=== PATIENT | male | born 1960 | race Caucasian/White ===

== ENCOUNTER 2017-02-05 10:21 | Observation (INO) | payer OTHER ==
[2017-02-05] MEDS ORDERED: Aspirin Low Dose CHEW TAB* 81 MG PO ONE (10:40)
[2017-02-05] MEDS ORDERED: Nitroglycerin 2% OINT* 1 GM PAK TOPICAL ONE (10:50)
[2017-02-05 11:16] LABS: Hematocrit 41 % (42-52); Mean Corpuscular HGB Conc 34 g/dl (31-36); Mean Corpuscular Hemoglobin 29 pg (27-31); Mean Corpuscular Volume 85 fL (80-94); Mean Platelet Volume 7 um3 (7.4-10.4); Red Blood Count 4.82 10^6/ul (4.0-5.4); Red Cell Distribution Width 14 % (10.5-15); White Blood Count 6.7 10^3/ul (3.5-10.8)
--- NOTE | 2017-02-05 11:33 | RAD ---
HISTORY: Chest pain COMPARISONS: February 14, 2016 VIEWS: 4: Frontal dual-energy and lateral views of the chest. FINDINGS: CARDIOMEDIASTINAL SILHOUETTE: The cardiomediastinal silhouette is normal. BRODIE: The brodie are normal. PLEURA: The costophrenic angles are sharp. No pleural abnormalities are noted. LUNG PARENCHYMA: The lungs are clear. ABDOMEN: The upper abdomen is clear. There is no subphrenic gas. BONES AND SOFT TISSUES: No bone or soft tissue abnormalities are noted. OTHER: None. IMPRESSION: NO ACTIVE CARDIOPULMONARY DISEASE.
[2017-02-05 11:36] LABS: Albumin 4.4 g/dL (3.2-5.2); BUN/Creatinine Ratio 14.7 (8-20); Calcium 9.5 mg/dL (8.6-10.3); EGFR African American 104.7 (>60); EGFR Non-African American 81.4 (>60); Globulin 2.7 g/dL (2-4); Magnesium 1.9 mg/dL (1.9-2.7); Potassium 4.4 mmol/L (3.5-5.0); Total Bilirubin 0.9 mg/dL (0.2-1.0); Total Protein 7.1 g/dL (6.4-8.9)
[2017-02-05 12:07] LABS: TSH (Thyroid Stimulating Horm) 0.92 mcIU/mL (0.34-5.60)
[2017-02-05] MEDS ORDERED: oxyCODONE TAB* 5 MG TAB PO ONE (12:18)
[2017-02-05] MEDS ORDERED: Acetaminophen TAB* 325 MG PO PRN (14:39)
[2017-02-05] MEDS ORDERED: Omeprazole CAP* 20 MG PO PRN (14:40)
[2017-02-05] MEDS ORDERED: Cyclobenzaprine TAB* 10 MG PO PRN (14:40)
[2017-02-05] MEDS ORDERED: oxyCODONE TAB* 5 MG TAB PO PRN (14:42)
[2017-02-05] MEDS: Aspirin EC Low Dose* 81 MG TAB.EC PO SCH (15:57)
[2017-02-05] MEDS: Morphine TAB Extended Release (*) 30 MG TAB.ER PO SCH (15:57)
--- NOTE | 2017-02-05 17:45 | HP ---
CC: Dr. Whti Kowalksi; Dr. Joshi; Dr. Whittaker * HISTORY AND PHYSICAL: DATE OF ADMISSION: 02/05/17 PRIMARY CARE PROVIDER: Dr. Whit Kowalski. CHIEF COMPLAINT: Chest pain. HISTORY OF PRESENT ILLNESS: Rajendra Martinez is a 56-year-old male with history of chronic pain, on morphine on a daily basis, as well as history of non-ST elevation MS in 2014 with 2 stents into the circumflex artery, who presents complaining of chest pain. The patient stated that he had been having cessations in his breath for some time now. He describes the experience like as a "deep pressure within." Sometimes, he states that belching relieves the pressure. He does not experience the chest pain with exercise or any activity. It usually happens when he is stationary. Today, he stated that he was having breakfast and he had a stressful discussion during breakfast and eating. He developed the chest pressure that was radiating into the left arm. He also stated that he had an episode of diaphoresis. The patient also noted that he has frequently diaphoresis during the day and it is also not related to exercise. He denies any dyspnea. The left-sided chest pressure, the patient experiences on a twice a week basis or so. Once again, it is not related to exercise. Similar chest pressure he experienced in January of 2016, when a stress test was at that point performed, he was admitted to telemetry monitored bed. His workup was basically negative. Today, the patient's EKG is unremarkable and his troponin is 0. The patient is going to be placed on overnight observation with plan for stress test in the morning. PAST MEDICAL HISTORY: 1. Non-ST elevation MS in 2014, status post 2 stents into the circumflex. 2. Hypertension. 3. History of chronic back pain. 4. Gastroesophageal reflux disease. 5. Hyperlipidemia. 6. Diet-controlled diabetes. MEDICATIONS: At home, include: 1. Lipitor 80 mg at bedtime. 2. Lisinopril 10 mg daily. 3. Flexeril 10 mg t.i.d. p.r.n. 4. Aspirin 81 mg daily. 5. Metoprolol succinate 25 mg daily. 6. Omeprazole 20 mg daily. 7. Nitroglycerin on a p.r.n. basis. 8. Morphine 15 mg every 8 hours p.r.n. 9. Morphine sulfate ER 30 mg at bedtime and 60 mg b.i.d. 10. Brilinta 90 mg b.i.d. ALLERGIES: Include BACLOFEN, GABAPENTIN, and METHYLPREDNISOLONE. BACLOFEN causes increased heart rate and chest pain. GABAPENTIN causes anxiety, depression, and mood changes. SOLU-MEDROL causes "swelling." FAMILY HISTORY: The patient has an extensive history of heart disease and his father had heart disease in his 60s. SOCIAL HISTORY: The patient quit smoking when he had his heart attack in 2014. He lives with his fiancee, Tabatha, who would be his healthcare proxy. He denies any alcohol use. He ambulates without the need of support. REVIEW OF SYSTEMS: Please see history of present illness. In addition to the above mentioned, the patient stated that he took a dose of nitroglycerin today with the chest pressure and that resolved the discomfort. All the remaining 14 systems were reviewed with the patient and were otherwise negative. PHYSICAL EXAMINATION GENERAL: The patient is a very pleasant 56-year-old male, who is in no acute distress. Alert, awake, and oriented x3. VITAL SIGNS: Blood pressure of 114/66, heart rate of 70 and regular, respiratory rate 18, oxygen saturation 90% on 2 L oxygen nasal cannula, temperature of 97.8. HEENT: Head, atraumatic and normocephalic. Eyes, pupils are equal and reactive to light and accommodation. Oropharynx clear. Mucosa moist. NECK: Supple. No JVD. No bruits bilaterally. RESPIRATORY: Clear to auscultation bilaterally. CARDIOVASCULAR: Regular rate and rhythm. No murmur. ABDOMEN: Soft and nontender. Bowel sounds are present in all 4 quadrants. EXTREMITIES: There is no edema. Pulses are +2 bilaterally. No clubbing or cyanosis. NEURO: Speech is clear. Cranial nerves II through XII are grossly intact. Motor strength is 5/5 bilaterally. PSYCHIATRIC: Oriented x3 with no evidence of anxiety or depression. SKIN: On evaluation of the skin, no ecchymotic areas or rashes noted. DIAGNOSTIC STUDIES/LAB DATA: Shows hemoglobin A1c was last obtained in July 2016, it was 6.6. Today, sodium was 134, potassium 4.4, chloride 102, carbon dioxide 25, BUN 14, creatinine 0.95. Liver function tests were remarkable. Troponin of 0. TSH of 0.92. CBC: White blood cell count of 6.7, hemoglobin of 14.0, hematocrit of 41, and platelets of . Portable chest x-ray as read by the radiologist: "No active cardiopulmonary disease." The patient's EKG shows normal sinus rhythm with a heart rate of 76 beats per minute with flattening of T waves in leads III and aVF, and no acute ST changes. ASSESSMENT AND PLAN: 1. Chest pain: Somewhat nonspecific in a patient who admits that he was stressed and it also occurred when he was eating, although it was relieved by nitroglycerin. At this point, the patient is going to be placed on overnight observation with a pharmacologic stress test in the morning. The patient requested pharmacologic stress test due that his lower back pain sometimes is severe and is difficult for the patient to walk. 2. In regards to the patient's dyslipidemia, the patient is going to be continued on Lipitor and fasting lipid profile is going to be obtained in the morning. 3. In regards to the patient's history of heart disease, the patient's aspirin and Brilinta as well as beta nazia is going to be continued. 4. In regards to the patient's chronic pain, morphine is going to be continued with its equivalent as outpatient. 5. For DVT prophylaxis, the patient is going to be ambulatory and is otherwise low risk. 6. Code status. The patient's code status is full. 7. In regards to the patient's diabetes, the patient is going to be continued on diabetic diet. His hemoglobin A1c was 6.6 in July of 2016. TIME SPENT: Approximately 65 minutes was spent on admission of this patient, more than half that time was spent [id number] with the patient during the interview and physical exam. [id number]/[facility] #: [id number] DUC
[2017-02-05] MEDS ORDERED: Atorvastatin* 80 MG TAB PO SCH (21:00)
[2017-02-05] MEDS ORDERED: Morphine TAB Extended Release (*) 30 MG TAB.ER PO SCH (21:00)
[2017-02-05] MEDS: Ticagrelor* 90 MG TAB PO SCH (22:41)
[2017-02-06 05:32] LABS: HDL Cholesterol 36.8 mg/dL
[2017-02-06] MEDS ORDERED: Aminophylline IV* 25 MG/ML 10 ML VIAL ONE (07:57)
[2017-02-06] MEDS ORDERED: Regadenoson* 0.4 MG/5 ML SYRINGE ONE (07:57)
[2017-02-06] MEDS ORDERED: Lisinopril TAB* 10 MG PO SCH (09:00)
[2017-02-06] MEDS ORDERED: Metoprolol Succinate XL TAB* 25 MG PO SCH (09:00)
[2017-02-06] MEDS: Morphine TAB Extended Release (*) 30 MG TAB.ER PO SCH (09:19)
--- NOTE | 2017-02-06 09:21 | RAD ---
Edited for charges. INDICATION: Chest pain. COMPARISON: Comparison is made with a prior study from February 15, 2016. Technique: A single day myocardial perfusion stress study was performed. Initially the resting study was performed. The patient was given an intravenous injection of 11.0 mCi of technetium 99m tetrofosmin and and the heart was imaged in multiple projections. The patient returned later in the day and under the direction of Dr. Joshi, the patient was given intervenous injection of Lexiscan. Subsequently the patient was given intravenous injection of 25.6 mCi of technetium 99m tetrofosmin and the heart was imaged in multiple projections. Images were reconstructed in the axial, sagittal and coronal planes and in a 3- D format. FINDINGS: There appears to be normal wall motion and myocardial thickening. The left ventricular ejection fraction was calculated to be 73%. Review of the images demonstrates normal distribution of radiopharmacutical. IMPRESSION: NO EVIDENCE FOR INFARCT OR ISCHEMIA. ASSESSMENT: Low risk. Based on imaging criteria from ACC/AHA 2002 Guideline Update for the Management of Patients With Chronic Stable Angina Table 23. Noninvasive Risk Stratification. MTDD
[2017-02-06] MEDS: Aspirin EC Low Dose* 81 MG TAB.EC PO SCH (11:14)
[2017-02-06] MEDS: Ticagrelor* 90 MG TAB PO SCH (11:14)
[2017-02-06 11:31] VITALS: BP 131/72
--- NOTE | 2017-02-08 12:26 | ED ---
Georgia Garcia Thomas, scribed for Tony De Dios MD on 02/05/17 at 1137 . HPI Chest Pain - HPI Summary HPI Summary: The patient is a 56 y/o M c/o a 30-minute episode of CP that began two hours ago. The CP radiates down his left arm. The CP is worsened with exertion. He is diaphoretic. The CP resolved when he was given NTG. For the last two weeks, he has been feeling weak and fatigued. He has a Hx of two coronary stents and he is a patient of Dr. Joshi. - History of Current Complaint Chief Complaint: EDChestPainROMI Time Seen by Provider: 02/05/17 10:43 Hx Obtained From: Patient Onset/Duration: Started Hours Ago - onset two hours ago, Still Present Timing: Lasting Minutes - CP lasted 30 minutes Pain Intensity: 2 Pain Scale Used: 0-10 Numeric Chest Pain Radiates: Yes Chest Pain Radiates To:: Arm - left arm Aggravating Factor(s): Exertion Alleviating Factor(s): NTG 123 Associated Signs and Symptoms: Positive: Chest Pain, Other: - Weak and fatigue over last three weeks - Additional Pertinent History Primary Care Physician: [id number] - Allergy/Home Medications Allergies/Adverse Reactions: Allergies Allergy/AdvReac Type Severity Reaction Status Date / Time Baclofen Allergy Severe pale, Verified 12/28/16 09:22 affected heart, chest pain Gabapentin AdvReac Intermediate Anxious; Verified 12/28/16 09:22 Depressed; Mood Changes Methylprednisolone AdvReac Swelling Verified 12/28/16 09:22 [From Medrol] PMH/Surg Hx/FS Hx/Imm Hx Previously Healthy: No Endocrine/Hematology History: Reports: Hx Diabetes - controlled with diet Denies: Hx Anemia, Hx Unexplained Bleeding Cardiovascular History: Reports: Hx Angina, Hx Coronary Artery Disease - hx of stents x 2 to circ, Hx Hypercholesterolemia, Hx Hypertension - New dx recently , Hx Myocardial Infarction Denies: Hx Aneurysm, Hx Angioplasty, Hx Auto Implanted Cardiovert Defib, Hx Cardiac Arrest, Hx Cardiomegaly, Hx Congenital Heart Disease, Hx Congestive Heart Failure, Hx Deep Vein Thrombosis, Hx Embolism, Hx Hypotension, Hx Pacemaker/ICD, Hx Peripheral Vascular Disease, Hx Rheumatic Fever, Hx Syncope, Hx Valvular Heart Disease, Other Cardiovascular Problems/Disorders Respiratory History: Denies: Hx Asthma, Hx Chronic Obstructive Pulmonary Disease (COPD) GI History: Reports: Hx Gastroesophageal Reflux Disease Denies: Hx Cirrhosis, Hx Crohn's Disease, Hx Diverticulosis, Hx Gall Bladder Disease, Hx Gastrointestinal Bleed, Hx Hiatal Hernia, Hx Irritable Bowel, Hx Jaundice, Hx Obstructive Bowel, Hx Ileostomy, Hx Pyloric Stenosis, Hx Ulcer, Other GI Disorders Musculoskeletal History: Reports: Hx Arthritis - lower spine, Hx Back Problems - lower back pain, chronic, Hx Orthopedic Injury - compression fxs to lower back , Other Musculoskeletal History - Chronic Pain; Lumbago Denies: Hx Bursitis, Hx Congenital Bone Abnormalities, Hx Fibromyalgia, Hx Gout, Hx Osteoporosis, Hx Scoliosis, Hx Tendonitis Sensory History: Reports: Hx Contacts or Glasses Denies: Hx Hearing Aid Opthamlomology History: Reports: Hx Contacts or Glasses Neurological History: Reports: Other Neuro Impairments/Disorders - lower back disk injury Denies: Hx Dementia, Hx Developmental Delay, Hx Headaches, Hx Migraine, Hx Nerve Disease, Hx Seizures, Hx Spinal Cord Injury, Hx Transient Ischemic Attacks (TIA) Psychiatric History: Denies: Hx Panic Disorder - Surgical History Surgery Procedure, Year, and Place: Two Cardiac Stents Placed on October 21 at [facility] Hx Anesthesia Reactions: No Infectious Disease History: No Infectious Disease History: Denies: Hx Hepatitis, Traveled Outside the [place] in Last 30 Days - Family History Known Family History: Positive: Cardiac Disease - [place] - father age 40s - Social History Alcohol Use: None Substance Use Type: Reports: None Substance Use Comment - Amount & Last Used: morphine Smoking Status (MU): Former Smoker Type: Cigarettes Amount Used/How Often: 1 can every 2 days Length of Time of Smoking/Using Tobacco: 2 years Have You Smoked in the Last Year: Yes Review of Systems Positive: Skin Diaphoresis. Negative: Fever, Chills Negative: Erythema - eyes Positive: Chest Pain - 30-minute episode of CP worse with exertion and alleviated by NTG Negative: Shortness Of Breath, Cough Negative: Abdominal Pain, Vomiting, Nausea Negative: dysuria, hematuria Negative: Myalgia, Edema - legs Negative: Rash Neurological: Other - NEGATIVE: dizziness All Other Systems Reviewed And Are Negative: Yes Physical Exam - Summary Physical Exam Summary: Constitutional: Well-developed, Well-nourished, Alert. (-) Distressed Skin: Warm, Dry HENT: Normocephalic; Atraumatic Eyes: Conjunctiva normal Neck: Musculoskeletal ROM normal neck. (-) JVD, (-) Stridor, (-) Tracheal deviation Cardio: Rhythm regular, rate normal, Heart sounds normal; Intact distal pulses; The pedal pulses are 2+ and symmetric. Radial pulses are 2+ and symmetric. (-) Murmur Pulmonary/Chest wall: Effort normal. (-) Respiratory distress, (-) Wheezes, (-) Rales Abd: Soft, (-) Tenderness, (-) Distension, (-) Guarding, (-) Rebound Musculoskeletal: (-) Edema Lymph: (-) Cervical adenopathy Neuro: Alert, Oriented x3 Psych: Mood and affect Normal Triage Information Reviewed: Yes Vital Signs On Initial Exam: Initial Vitals Temp Pulse Resp BP Pulse Ox 97.8 F 90 16 141/75 96 02/05/17 10:24 02/05/17 10:24 02/05/17 10:24 02/05/17 10:24 02/05/17 10:24 Vital Signs Reviewed: Yes - Greer Coma Scale Coma Scale Total: 15 Diagnostics - Vital Signs Vital Signs Temp Pulse Resp BP Pulse Ox 02/05/17 11:24 15 96 02/05/17 10:24 97.8 F 90 16 141/75 96 - Laboratory Lab Results: Lab Results 02/05/17 02/05/17 Range/Units 10:58 10:58 WBC 6.7 (3.5-10.8) 10^3/ul RBC 4.82 (4.0-5.4) 10^6/ul Hgb 14.0 (14.0-18.0) g/dl Hct 41 L (42-52) % MCV 85 (80-94) fL MCH 29 (27-31) pg MCHC 34 (31-36) g/dl RDW 14 (10.5-15) % Plt Count 245 (150-450) 10^3/ul MPV 7 L (7.4-10.4) um3 Neut % (Auto) 74.2 (38-83) % Lymph % (Auto) 18.8 L (25-47) % Karnes % (Auto) 6.2 (1-9) % Eos % (Auto) 0.2 (0-6) % Baso % (Auto) 0.6 (0-2) % Absolute Neuts (auto) 5.0 (1.5-7.7) 10^3/ul Absolute Lymphs (auto) 1.3 (1.0-4.8) 10^3/ul Absolute Monos (auto) 0.4 (0-0.8) 10^3/ul Absolute Eos (auto) 0 (0-0.6) 10^3/ul Absolute Basos (auto) 0 (0-0.2) 10^3/ul Absolute Nucleated RBC 0.01 10^3/ul Nucleated RBC % 0.1 INR (Anticoag Therapy) 1.01 (0.89-1.11) D-Dimer, Quantitative < 200 (Less Than 230) ng/mL Result Diagrams: 02/05/17 10:58 02/05/17 10:58 Lab Statement: Any lab studies that have been ordered have been reviewed, and results considered in the medical decision making process. - Radiology CXR Xray Interpretation: No Acute Changes - No active cardiopulmonary disease. ED physician has reviewed this report and agrees. Radiology Interpretation Completed By: Radiologist - EKG 10:41 Cardiac Rate: NL - 76 BPM EKG Interpretation: No STEMI Re-Evaluation - Re-Evaluation First Eval Re-Evaluation Time: 12:18 Change: Unchanged Comment: The patient says he has a Hx of chronic back pain. Chest Pain Course/Dx - Course Assessment/Plan: The patient is a 56 y/o M c/o a 30-minute episode of CP that began two hours ago. The CP radiates down his left arm. The CP is worsened with exertion. He is diaphoretic. The CP resolved when he was given NTG. For the last two weeks, he has been feeling weak and fatigued. He has a Hx of two coronary stents and he is a patient of Dr. Joshi. The patient had a normal exam. In the ED course the patient was given ASA, NTG, and Roxycodone. EKG was negative for STEMI and CXR was negative for active cardiopulmonary disease. Bloodwork was obtained and it shows troponin #1 and #2 0.00. The patient was diagnosed with chest pain, unspecified. I consulted with Dr. Stephens, hospitalist, who will admit the patient. - Diagnoses Provider Diagnoses: Chest pain, unspecified - Provider Notifications Discussed Care Of Patient With: Nora Stephens Time Discussed With Above Provider: 13:10 Instructed by Provider To: Other - I discussed care with Dr. Stephens, hospitalist, who will admit the patient to [facility]. Discharge - Discharge Plan Condition: Fair Disposition: ADMITTED TO [facility] documentation as recorded by the Georgia desir Thomas accurately reflects the service I personally performed and the decisions made by me, Tony De Dios MD.
== END 2017-02-06 11:29 | disposition home or self-care (01) ==
LOC: ED 10:21 → MEDTELE 13:25
PROVIDERS: ADMIT Internal Medicine; ATTEND Internal Medicine
DX: R07.9 Chest pain, unspecified (principal); I25.2 Old myocardial infarction; I10 Essential (primary) hypertension; I25.119 Atherosclerotic heart disease of native coronary artery with unspecified angina pectoris; Z95.5 Presence of coronary angioplasty implant and graft; E78.5 Hyperlipidemia, unspecified; K21.9 Gastro-esophageal reflux disease without esophagitis; E11.9 Type 2 diabetes mellitus without complications; Z79.82 Long term (current) use of aspirin; Z79.899 Other long term (current) drug therapy; Z87.891 Personal history of nicotine dependence; Z88.8 Allergy status to other drugs, medicaments and biological substances
CPT/HCPCS: 36415; 71020; 78452; 80053; 80061; 83605; 83735; 83880; 84443; 84484; 85025; 85379; 85610; 93005; 93017; 99284; A9270-GY; A9502; G0378; J0280; J2785

== ENCOUNTER 2017-02-18 17:05 | Emergency (ER) | payer OTHER ==
--- NOTE | 2017-02-18 17:58 | RAD ---
INDICATION: Change in mental status COMPARISON: None TECHNIQUE: Noncontrast axial source images were acquired from the skull base to the vertex. FINDINGS: Ventricles/sulci: The ventricles and cisterns are normal in size and configuration for age. Brain parenchyma: There is no focal parenchymal finding, evidence of intracranial mass, or intracranial mass effect. Intracranial hemorrhage:None. Extra-axial spaces: There are no abnormal extra axial fluid collections or evidence of extra-axial mass. Calvarium: There is no calvarial fracture or other calvarial abnormality. Scalp: There is no evidence of scalp or extracalvarial soft tissue abnormality. Paranasal sinuses/mastoid: The paranasal sinuses and mastoid air cells are clear. Other: None. IMPRESSION: NEGATIVE EXAMINATION
[2017-02-18 18:22] LABS: Hematocrit 40 % (42-52); Hemoglobin 13.5 g/dl (14.0-18.0); Mean Corpuscular HGB Conc 33 g/dl (31-36); Mean Corpuscular Hemoglobin 29 pg (27-31); Mean Corpuscular Volume 86 fL (80-94); Mean Platelet Volume 7 um3 (7.4-10.4); Red Blood Count 4.69 10^6/ul (4.0-5.4); Red Cell Distribution Width 14 % (10.5-15); White Blood Count 7.2 10^3/ul (3.5-10.8)
[2017-02-18 18:37] LABS: Albumin 4.3 g/dL (3.2-5.2); BUN/Creatinine Ratio 14.1 (8-20); Calcium 9.8 mg/dL (8.6-10.3); EGFR African American 99.9 (>60); EGFR Non-African American 77.6 (>60); Globulin 2.6 g/dL (2-4); Potassium 4.6 mmol/L (3.5-5.0); Total Bilirubin 0.4 mg/dL (0.2-1.0); Total Protein 6.9 g/dL (6.4-8.9)
[2017-02-18 19:15] LABS: TSH (Thyroid Stimulating Horm) 0.71 mcIU/mL (0.34-5.60)
[2017-02-18 19:51] LABS: Urine Bacteria Absent (Absent); Urine Bilirubin Negative (Negative); Urine Glucose Negative (Negative); Urine Nitrite Negative (Negative)
[2017-02-18 20:22] VITALS: BP 136/78
--- NOTE | 2017-02-18 21:56 | ED ---
Darryl Garcia Alfonso, scribed for Barrett Garg MD on 02/18/17 at 1732 . Complex/Multi-Sys Presentation - HPI Summary HPI Summary: This patient is a 56 year old M BIBA to [facility] accompanied by a female with a chief complaint of a buzzing right behind my eyes since yesterday afternoon. He states Im pretty sure its a side effect from Cymbalta. He began Cymbalta 2 days ago. The patient rates the pain 6/10 in severity. Symptoms alleviated by spontaneous resolution. Patient reports nausea, fever, diaphoresis, and tiredness. Patient denies weakness, unsteady gait, and headache. - History Of Current Complaint Chief Complaint: EDGeneral Time Seen by Provider: 02/18/17 17:23 Hx Obtained From: Patient Onset/Duration: Gradual Onset, Lasting Days, Resolved Timing: Constant Severity Initially: Moderate - 6/10 Alleviating Factor(s): spontaneous resolution Associated Signs And Symptoms: Positive: Other - nausea, fever, diaphoresis, and tiredness. Patient denies weakness, unsteady gait, and headache. - Allergies/Home Medications Allergies/Adverse Reactions: Allergies Allergy/AdvReac Type Severity Reaction Status Date / Time Baclofen Allergy Severe pale, Verified 12/28/16 09:22 affected heart, chest pain Gabapentin AdvReac Intermediate Anxious; Verified 12/28/16 09:22 Depressed; Mood Changes Methylprednisolone AdvReac Swelling Verified 12/28/16 09:22 [From Medrol] PMH/Surg Hx/FS Hx/Imm Hx Endocrine/Hematology History: Reports: Hx Diabetes - controlled with diet Denies: Hx Anemia, Hx Unexplained Bleeding Cardiovascular History: Reports: Hx Angina, Hx Coronary Artery Disease - hx of stents x 2 to circ, Hx Hypercholesterolemia, Hx Hypertension - New dx recently , Hx Myocardial Infarction Denies: Hx Aneurysm, Hx Angioplasty, Hx Auto Implanted Cardiovert Defib, Hx Cardiac Arrest, Hx Cardiomegaly, Hx Congenital Heart Disease, Hx Congestive Heart Failure, Hx Deep Vein Thrombosis, Hx Embolism, Hx Hypotension, Hx Pacemaker/ICD, Hx Peripheral Vascular Disease, Hx Rheumatic Fever, Hx Syncope, Hx Valvular Heart Disease, Other Cardiovascular Problems/Disorders Respiratory History: Denies: Hx Asthma, Hx Chronic Obstructive Pulmonary Disease (COPD) GI History: Reports: Hx Gastroesophageal Reflux Disease Denies: Hx Cirrhosis, Hx Crohn's Disease, Hx Diverticulosis, Hx Gall Bladder Disease, Hx Gastrointestinal Bleed, Hx Hiatal Hernia, Hx Irritable Bowel, Hx Jaundice, Hx Obstructive Bowel, Hx Ileostomy, Hx Pyloric Stenosis, Hx Ulcer, Other GI Disorders Musculoskeletal History: Reports: Hx Arthritis - lower spine, Hx Back Problems - lower back pain, chronic, Hx Orthopedic Injury - compression fxs to lower back , Other Musculoskeletal History - Chronic Pain; Lumbago Denies: Hx Bursitis, Hx Congenital Bone Abnormalities, Hx Fibromyalgia, Hx Gout, Hx Osteoporosis, Hx Scoliosis, Hx Tendonitis Sensory History: Reports: Hx Contacts or Glasses Denies: Hx Hearing Aid Opthamlomology History: Reports: Hx Contacts or Glasses Neurological History: Reports: Other Neuro Impairments/Disorders - lower back disk injury Denies: Hx Dementia, Hx Developmental Delay, Hx Headaches, Hx Migraine, Hx Nerve Disease, Hx Seizures, Hx Spinal Cord Injury, Hx Transient Ischemic Attacks (TIA) Psychiatric History: Denies: Hx Panic Disorder - Surgical History Surgery Procedure, Year, and Place: Two Cardiac Stents Placed on October 21 at [facility] [place] Hx Anesthesia Reactions: No Infectious Disease History: No Infectious Disease History: Denies: Hx Hepatitis, Traveled Outside the [place] in Last 30 Days - Family History Known Family History: Positive: Cardiac Disease - [place] - father age 40s - Social History Alcohol Use: None Substance Use Type: Reports: None, Prescribed Substance Use Comment - Amount & Last Used: morphine Smoking Status (MU): Former Smoker Type: Cigarettes Amount Used/How Often: 1 can every 2 days Length of Time of Smoking/Using Tobacco: 2 years Have You Smoked in the Last Year: Yes Review of Systems Positive: Fever, Skin Diaphoresis, Other - tiredness Positive: Other - a buzz right behind my eyes Positive: Other - Negative unsteady gait Negative: Headache, Weakness All Other Systems Reviewed And Are Negative: Yes Physical Exam Triage Information Reviewed: Yes Vital Signs On Initial Exam: Initial Vitals Temp Pulse Resp BP Pulse Ox 98 F 75 12 140/79 97 02/18/17 17:17 02/18/17 17:17 02/18/17 17:17 02/18/17 17:17 02/18/17 17:17 Vital Signs Reviewed: Yes Appearance: Positive: Well-Appearing, No Pain Distress Skin: Positive: Warm, Skin Color Reflects Adequate Perfusion, Dry Head/Face: Positive: Normal Head/Face Inspection Eyes: Positive: Normal ENT: Positive: Normal ENT inspection Neck: Positive: Supple, Nontender Respiratory/Lung Sounds: Positive: Clear to Auscultation, Breath Sounds Present Cardiovascular: Positive: RRR Abdomen Description: Positive: Nontender, Soft Bowel Sounds: Positive: Present Musculoskeletal: Positive: Normal Neurological: Positive: Normal, Sensory/Motor Intact, Alert, Oriented to Person Place, Time, CN Intact II-III Psychiatric: Positive: Normal, Affect/Mood Appropriate - [place] Coma Scale Coma Scale Total: 15 Diagnostics - Vital Signs Vital Signs Temp Pulse Resp BP Pulse Ox 02/18/17 17:17 98 F 75 12 140/79 97 - Laboratory Lab Results: Lab Results 02/18/17 02/18/17 02/18/17 Range/Units 18:12 18:12 18:12 WBC 7.2 (3.5-10.8) 10^3/ul RBC 4.69 (4.0-5.4) 10^6/ul Hgb 13.5 L (14.0-18.0) g/dl Hct 40 L (42-52) % MCV 86 (80-94) fL MCH 29 (27-31) pg MCHC 33 (31-36) g/dl RDW 14 (10.5-15) % Plt Count 256 (150-450) 10^3/ul MPV 7 L (7.4-10.4) um3 Neut % (Auto) 76.0 (38-83) % Lymph % (Auto) 14.2 L (25-47) % [place] % (Auto) 8.7 (1-9) % Eos % (Auto) 0.5 (0-6) % Baso % (Auto) 0.6 (0-2) % Absolute Neuts (auto) 5.5 (1.5-7.7) 10^3/ul Absolute Lymphs (auto) 1.0 (1.0-4.8) 10^3/ul Absolute Monos (auto) 0.6 (0-0.8) 10^3/ul Absolute Eos (auto) 0 (0-0.6) 10^3/ul Absolute Basos (auto) 0 (0-0.2) 10^3/ul Absolute Nucleated RBC 0 10^3/ul Nucleated RBC % 0 Sodium 136 (133-145) mmol/L Potassium 4.6 (3.5-5.0) mmol/L Chloride 102 (101-111) mmol/L Carbon Dioxide 29 (22-32) mmol/L Anion Gap 5 (2-11) mmol/L BUN 14 (6-24) mg/dL Creatinine 0.99 (0.67-1.17) mg/dL Est GFR ( Amer) 99.9 (>60) Est GFR (Non-Af Amer) 77.6 (>60) BUN/Creatinine Ratio 14.1 (8-20) Glucose 107 H (70-100) mg/dL Lactic Acid 1.2 (0.5-2.0) mmol/L Calcium 9.8 (8.6-10.3) mg/dL Total Bilirubin 0.40 (0.2-1.0) mg/dL AST 24 (13-39) U/L ALT 31 (7-52) U/L Alkaline Phosphatase 70 (34-104) U/L Troponin I 0.00 (<0.04) ng/mL Total Protein 6.9 (6.4-8.9) g/dL Albumin 4.3 (3.2-5.2) g/dL Globulin 2.6 (2-4) g/dL Albumin/Globulin Ratio 1.7 (1-3) TSH 0.71 (0.34-5.60) mcIU/mL Urine Color Urine Appearance Urine pH (5-9) Ur Specific [place] (1.010-1.030) Urine Protein (Negative) Urine Ketones (Negative) Urine Blood (Negative) Urine Nitrate (Negative) Urine Bilirubin (Negative) Urine Urobilinogen (Negative) Ur Leukocyte Esterase (Negative) Urine WBC (Auto) (Absent) Urine RBC (Auto) (Absent) Ur Squamous Epith Cells (Absent) Urine Bacteria (Absent) Hyaline Casts (Absent) Granular Casts (Absent) Urine Glucose (Negative) 02/18/17 Range/Units 19:28 WBC (3.5-10.8) 10^3/ul RBC (4.0-5.4) 10^6/ul Hgb (14.0-18.0) g/dl Hct (42-52) % MCV (80-94) fL MCH (27-31) pg MCHC (31-36) g/dl RDW (10.5-15) % Plt Count (150-450) 10^3/ul MPV (7.4-10.4) um3 Neut % (Auto) (38-83) % Lymph % (Auto) (25-47) % [place] % (Auto) (1-9) % Eos % (Auto) (0-6) % Baso % (Auto) (0-2) % Absolute Neuts (auto) (1.5-7.7) 10^3/ul Absolute Lymphs (auto) (1.0-4.8) 10^3/ul Absolute Monos (auto) (0-0.8) 10^3/ul Absolute Eos (auto) (0-0.6) 10^3/ul Absolute Basos (auto) (0-0.2) 10^3/ul Absolute Nucleated RBC 10^3/ul Nucleated RBC % Sodium (133-145) mmol/L Potassium (3.5-5.0) mmol/L Chloride (101-111) mmol/L Carbon Dioxide (22-32) mmol/L Anion Gap (2-11) mmol/L BUN (6-24) mg/dL Creatinine (0.67-1.17) mg/dL Est GFR ( Amer) (>60) Est GFR (Non-Af Amer) (>60) BUN/Creatinine Ratio (8-20) Glucose (70-100) mg/dL Lactic Acid (0.5-2.0) mmol/L Calcium (8.6-10.3) mg/dL Total Bilirubin (0.2-1.0) mg/dL AST (13-39) U/L ALT (7-52) U/L Alkaline Phosphatase (34-104) U/L Troponin I (<0.04) ng/mL Total Protein (6.4-8.9) g/dL Albumin (3.2-5.2) g/dL Globulin (2-4) g/dL Albumin/Globulin Ratio (1-3) TSH (0.34-5.60) mcIU/mL Urine Color Yellow Urine Appearance Cloudy Urine pH 5.0 (5-9) Ur Specific [place] 1.026 (1.010-1.030) Urine Protein Negative (Negative) Urine Ketones Negative (Negative) Urine Blood 2+ H (Negative) Urine Nitrate Negative (Negative) Urine Bilirubin Negative (Negative) Urine Urobilinogen Negative (Negative) Ur Leukocyte Esterase Negative (Negative) Urine WBC (Auto) Trace(0-5/hpf) (Absent) Urine RBC (Auto) 2+(6-10/hpf) H (Absent) Ur Squamous Epith Cells Present H (Absent) Urine Bacteria Absent (Absent) Hyaline Casts Present H (Absent) Granular Casts Present H (Absent) Urine Glucose Negative (Negative) Result Diagrams: 02/18/17 18:12 02/18/17 18:12 Lab Statement: Any lab studies that have been ordered have been reviewed, and results considered in the medical decision making process. - CT Brain CT Interpretation Completed By: Radiologist - NEGATIVE EXAMINATION. ED physician has reviewed this radiology report and agrees. - EKG 1734 Cardiac Rate: NL - BPM 68 EKG Rhythm: Sinus Rhythm EKG Interpretation: Nonspecific inferior T-Wave inversions. Normal axis. Complex Multi-Symp Course/Dx Course Of Treatment: Mr. Soriano presented with unusual symtoms which I could not fine a cause for. They are likely a side effect of his newly begun cymbalta. I recommended he stop it and F/U with his PMD. - Diagnoses Provider Diagnoses: Medication side effect Discharge - Discharge Plan Condition: Stable Disposition: HOME Patient Education Materials: Adverse Drug Reaction (ED) Referrals: Whit Najera MD [Primary Care Provider] - 3 Days Additional Instructions: RETURN TO THE EMERGENCY DEPARTMENT FOR CHANGING OR WORSENING SYMPTOMS. The documentation as recorded by the Darryl desir Alfonso accurately reflects the service I personally performed and the decisions made by me, Barrett Garg MD.
== END 2017-02-18 20:24 | disposition home or self-care (01) ==
LOC: ED 17:05
DX: R11.0 Nausea (principal); R61 Generalized hyperhidrosis; R50.9 Fever, unspecified; R53.83 Other fatigue; T43.215A Adverse effect of selective serotonin and norepinephrine reuptake inhibitors, initial encounter; Y92.9 Unspecified place or not applicable; I25.119 Atherosclerotic heart disease of native coronary artery with unspecified angina pectoris; I10 Essential (primary) hypertension; Z95.5 Presence of coronary angioplasty implant and graft; I21.9 Acute myocardial infarction, unspecified; E78.00 Pure hypercholesterolemia, unspecified; K21.9 Gastro-esophageal reflux disease without esophagitis; Z88.8 Allergy status to other drugs, medicaments and biological substances; Z87.891 Personal history of nicotine dependence
CPT/HCPCS: 36415; 70450; 80053; 81003; 81015; 83605; 84443; 84484; 85025; 93005; 99282

== ENCOUNTER 2017-05-17 11:06 | Emergency (ER) | payer OTHER ==
[2017-05-17 14:44] LABS: ABS Basophils 0 10^3/ul (0-0.2); ABS Eosinophils 0 10^3/ul (0-0.6); ABS Lymphocytes 1.7 10^3/ul (1.0-4.8); ABS Monocytes 0.5 10^3/ul (0-0.8); ABS Neutrophils 6.1 10^3/ul (1.5-7.7); ABS Nucleated RBC 0 10^3/ul; Eosinophil % 0.3 % (0-6); Hematocrit 44 % (42-52); Hemoglobin 14.7 g/dl (14.0-18.0); Mean Corpuscular HGB Conc 34 g/dl (31-36); Mean Corpuscular Hemoglobin 29 pg (27-31); Mean Corpuscular Volume 87 fL (80-94); Mean Platelet Volume 7 um3 (7.4-10.4); Nucleated Red Blood Cells % 0; Platelet Count 248 10^3/ul (150-450); Red Blood Count 5.02 10^6/ul (4.0-5.4); Red Cell Distribution Width 14 % (10.5-15); White Blood Count 8.3 10^3/ul (3.5-10.8)
--- NOTE | 2017-05-17 15:01 | RAD ---
Indication: Shortness of breath. Single frontal view of the chest performed at 1445 hours was reviewed. Comparison is made with previous exam dated February 05, 2017. No mediastinal shift is noted. Heart is of normal size and configuration. Lung wynn appear clear. IMPRESSION: NO ACTIVE CARDIOPULMONARY DISEASE IS NOTED.
[2017-05-17 15:04] LABS: EGFR Non-African American 93.9 (>60)
[2017-05-17 16:56] VITALS: BP 123/67
--- NOTE | 2017-05-17 18:54 | ED ---
Artur Garcia Julia, scribed for Jane Neely MD on 05/17/17 at 1421 . HPI Chest Pain - HPI Summary HPI Summary: This patient is a 56 year old M presenting to [facility] with a chief complaint of sudden head pressure with the sensation of elevated heart rate and blood pressure that is currently resolved. Patient states that these symptoms come in reoccurring episodes. Patient reports buzzing behind eyes, dizziness, slight chest pressure that radiates into neck, and sore neck. Patient additionally reports that 2 days ago at 2:00am he woke up and felt an elephant on chest that quickly resolved ( pt. did not take nitro after these symptoms). Pt states these symptoms are affecting his sleep and he sometimes wakes gasping for air. Pt reports anxiety and recent increase in stress. Patient denies headache, vision changes, ear ache, sore throat, urinary symptoms, swelling, or changes in back pain. Patient has history of ME. - History of Current Complaint Chief Complaint: EDChestPainROMI Time Seen by Provider: 05/17/17 12:49 Hx Obtained From: Patient Onset/Duration: Started Weeks Ago Timing: Intermittent Current Severity: None Pain Intensity: 0 Pain Scale Used: 0-10 Numeric Chest Pain Location: Mid Sternal Character: Other: - "elephant on chest" Aggravating Factor(s): Position Alleviating Factor(s): Nothing Associated Signs and Symptoms: Positive: Other: - buzzing behind eyes, waking with SOB - Additional Pertinent History Primary Care Physician: [id number] - Allergy/Home Medications Allergies/Adverse Reactions: Allergies Allergy/AdvReac Type Severity Reaction Status Date / Time Baclofen Allergy Severe pale, Verified 05/15/17 10:58 affected heart, chest pain Gabapentin AdvReac Intermediate Anxious; Verified 05/15/17 10:58 Depressed; Mood Changes CI Pigment Blue 63 AdvReac Pain Verified 05/15/17 10:58 [From Cymbalta] Duloxetine [From Cymbalta] AdvReac Pain Verified 05/15/17 10:58 Methylprednisolone AdvReac Swelling Verified 05/15/17 10:58 [From Medrol] PMH/Surg Hx/FS Hx/Imm Hx Endocrine/Hematology History: Reports: Hx Diabetes - controlled with diet Denies: Hx Anemia, Hx Unexplained Bleeding Cardiovascular History: Reports: Hx Angina, Hx Coronary Artery Disease - hx of stents x 2 to circ, Hx Hypercholesterolemia, Hx Hypertension - New dx recently , Hx Myocardial Infarction Denies: Hx Aneurysm, Hx Angioplasty, Hx Auto Implanted Cardiovert Defib, Hx Cardiac Arrest, Hx Cardiomegaly, Hx Congenital Heart Disease, Hx Congestive Heart Failure, Hx Deep Vein Thrombosis, Hx Embolism, Hx Hypotension, Hx Pacemaker/ICD, Hx Peripheral Vascular Disease, Hx Rheumatic Fever, Hx Syncope, Hx Valvular Heart Disease, Other Cardiovascular Problems/Disorders Respiratory History: Denies: Hx Asthma, Hx Chronic Obstructive Pulmonary Disease (COPD) GI History: Reports: Hx Gastroesophageal Reflux Disease Denies: Hx Cirrhosis, Hx Crohn's Disease, Hx Diverticulosis, Hx Gall Bladder Disease, Hx Gastrointestinal Bleed, Hx Hiatal Hernia, Hx Irritable Bowel, Hx Jaundice, Hx Obstructive Bowel, Hx Ileostomy, Hx Pyloric Stenosis, Hx Ulcer, Other GI Disorders Musculoskeletal History: Reports: Hx Arthritis - lower spine, Hx Back Problems - lower back pain, chronic, Hx Orthopedic Injury - compression fxs to lower back , Other Musculoskeletal History - Chronic Pain; Lumbago Denies: Hx Bursitis, Hx Congenital Bone Abnormalities, Hx Fibromyalgia, Hx Gout, Hx Osteoporosis, Hx Scoliosis, Hx Tendonitis Sensory History: Reports: Hx Contacts or Glasses Denies: Hx Hearing Aid Opthamlomology History: Reports: Hx Contacts or Glasses Neurological History: Reports: Other Neuro Impairments/Disorders - lower back disk injury Denies: Hx Dementia, Hx Developmental Delay, Hx Headaches, Hx Migraine, Hx Nerve Disease, Hx Seizures, Hx Spinal Cord Injury, Hx Transient Ischemic Attacks (TIA) Psychiatric History: Denies: Hx Panic Disorder - Surgical History Surgery Procedure, Year, and Place: Two Cardiac Stents Placed on October 21 at [facility] [place] Hx Anesthesia Reactions: No - Immunization History Date of Influenza Vaccine: 02/12 Immunizations Up to Date: Yes Infectious Disease History: No Infectious Disease History: Denies: Hx Hepatitis, Traveled Outside the [place] in Last 30 Days - Family History Known Family History: Positive: Cardiac Disease - [place] - father age 40s - Social History Alcohol Use: None Substance Use Type: Reports: None Substance Use Comment - Amount & Last Used: morphine Smoking Status (MU): Former Smoker Type: Cigarettes Amount Used/How Often: 1 can every 2 days Length of Time of Smoking/Using Tobacco: 2 years Have You Smoked in the Last Year: Yes Review of Systems Eyes: Other - buzzing behind eyes Negative: Blurred Vision Negative: Sore Throat, Ear Ache Positive: Chest Pain Positive: Shortness Of Breath Negative: Abdominal Pain Positive: no symptoms reported Positive: Myalgia - back pain unchanged. Negative: Edema Negative: Headache Positive: Anxious All Other Systems Reviewed And Are Negative: No Physical Exam - Summary Physical Exam Summary: Appearance: Alert, conversive, nontoxic appearing Skin: Warm, dry, no mottling, no rashes, no contusions HEENT: EOMI, PERRL, moist mucous membranes Neck: No masses on the neck, supple Respiratory: Clear to auscultation, breath sounds present, no rales, no rhonchi , no wheezes Cardiovascular: RRR, pulses are symmetrical in both lower and upper extremities Abdomen: Soft, non-tender Bowel Sounds: Present Musculoskeletal: No CVA tenderness, no obvious deformity, moving all extremities in a grossly normal manner, midline incision scar at c-pine Neurological: A&Ox3, CN II-XII Intact, moving all extremities symmetrically Psychiatric: Normal affect and mood Triage Information Reviewed: Yes Vital Signs On Initial Exam: Initial Vitals Temp Pulse Resp BP Pulse Ox 97.8 F 75 16 170/104 92 05/17/17 11:06 05/17/17 11:06 05/17/17 11:06 05/17/17 11:06 05/17/17 11:06 Vital Signs Reviewed: Yes - Anisa Coma Scale Coma Scale Total: 15 Diagnostics - Vital Signs Vital Signs Temp Pulse Resp BP Pulse Ox 05/17/17 13:09 66 10 132/73 95 05/17/17 13:00 66 10 97 05/17/17 12:59 97.4 F 69 16 156/82 98 05/17/17 12:55 66 12 99 05/17/17 11:06 97.8 F 75 16 170/104 92 - Laboratory Result Diagrams: 05/17/17 14:32 05/17/17 14:32 Lab Statement: Any lab studies that have been ordered have been reviewed, and results considered in the medical decision making process. - Radiology CXR Radiology Interpretation Completed By: Radiologist - NO ACTIVE CARDIOPULMONARY DISEASE IS NOTED. ED physician has reviewed this report. - EKG 11:09 Cardiac Rate: NL EKG Rhythm: Sinus Rhythm - at [address] Segment: Normal EKG Interpretation: normal QRS and QTc and STT wave Chest Pain Course/Dx - Course Course Of Treatment: Patient's EKG and CXR review no acute pathology. Pt expresses anxiety through ED course and was given 1 Xanax to take at home. - Diagnoses Provider Diagnoses: Anxiety, Chest pain Discharge - Discharge Plan Condition: Stable Disposition: HOME Patient Education Materials: Chest Pain (ED), Anxiety (ED) Referrals: Whit Najera MD [Primary Care Provider] - Additional Instructions: Take the xanax when you get home. follow up with your primary care physician. keep your appt with your lead bi developer on saturday. keep all appt with your pain management doctor. return if worse or any new symptoms. The documentation as recorded by the Artur desir Julia accurately reflects the service I personally performed and the decisions made by , Jane Neely MD.
== END 2017-05-17 16:41 | disposition home or self-care (01) ==
LOC: ED 11:06
DX: R07.9 Chest pain, unspecified (principal); R06.02 Shortness of breath; M54.9 Dorsalgia, unspecified; Z87.891 Personal history of nicotine dependence; F41.9 Anxiety disorder, unspecified
CPT/HCPCS: 36415; 71045; 80053; 84484; 85025; 93005; 99283

== ENCOUNTER 2017-08-03 10:57 | Emergency (ER) | payer OTHER ==
[2017-08-03] MEDS ORDERED: Aspirin 81 mg CHEW TAB* 81 MG TAB.CHEW PO ONE (11:03)
[2017-08-03] MEDS ORDERED: Aspirin 81 mg CHEW TAB* 81 MG TAB.CHEW ONE (11:05)
[2017-08-03 11:35] LABS: ABS Basophils 0 10^3/ul (0-0.2); ABS Eosinophils 0 10^3/ul (0-0.6); ABS Lymphocytes 1.6 10^3/ul (1.0-4.8); ABS Monocytes 0.5 10^3/ul (0-0.8); ABS Neutrophils 4.7 10^3/ul (1.5-7.7); ABS Nucleated RBC 0 10^3/ul; Eosinophil % 0.7 % (0-6); Hematocrit 44 % (42-52); Hemoglobin 14.8 g/dl (14.0-18.0); Lymphocyte % 22.8 % (25-47); Mean Corpuscular HGB Conc 34 g/dl (31-36); Mean Corpuscular Hemoglobin 29 pg (27-31); Mean Corpuscular Volume 86 fL (80-94); Nucleated Red Blood Cells % 0; Platelet Count 236 10^3/ul (150-450); Red Blood Count 5.14 10^6/ul (4.0-5.4); Red Cell Distribution Width 13 % (10.5-15); White Blood Count 6.8 10^3/ul (3.5-10.8)
[2017-08-03 11:43] LABS: INR 1.04 (0.77-1.02)
[2017-08-03 11:54] LABS: EGFR Non-African American 74.2 (>60)
--- NOTE | 2017-08-03 13:21 | RAD ---
INDICATION: Chest pain. COMPARISON: Comparison is made with a prior study from May 17, 2017. TECHNIQUE: A portable view of the chest was obtained. FINDINGS: Cardiac and mediastinal contours appear to be within normal limits. The lungs are underinflated and clear. No pleural effusion or pneumothorax is seen. IMPRESSION: NO EVIDENCE FOR ACUTE DISEASE.
[2017-08-03 15:13] LABS: Urine Appearance Clear; Urine Blood Negative (Negative); Urine Color Yellow; Urine Ketones Negative (Negative); Urine Protein Negative (Negative); Urine Specific Gravity 1.016 (1.010-1.030); Urine Urobilinogen Negative (Negative)
[2017-08-03 15:20] VITALS: BP 119/78
--- NOTE | 2017-08-05 12:49 | ED ---
Mello Garcia Stephanie, scribed for Dmitry Gill MD on 08/03/17 at 1140 . HPI Chest Pain - HPI Summary HPI Summary: The pt is a 56 y/o M presenting to the ED with c/o CP that began last night when the pt was sleeping. Symptoms include SOB, L UE pain, diaphoresis, sleep disturbance and increased HR while waking up. He denies N/V and lightheadedness. The CP is described as intermittent and as a light fluttering. The pt states he has been to a mergers and acquisitions consultant (Dr. Joshi) for his heart problems before. He is scheduled to have a stress test in August however, he states his symptoms have been worsening rapidly and he feels as though he cannot wait until August. - History of Current Complaint Chief Complaint: EDChestPainROMI Time Seen by Provider: 08/03/17 11:02 Hx Obtained From: Patient Onset/Duration: Started Hours Ago, Resolved Timing: Intermittent Current Severity: None Pain Intensity: 0 Pain Scale Used: 0-10 Numeric Chest Pain Location: Mid Sternal Chest Pain Radiates: No Character: Fluttering Aggravating Factor(s): Other: - sleep Alleviating Factor(s): Other: - waking up from sleep Associated Signs and Symptoms: Positive: Chest Pain, Shortness of Breath - L UE pain, sleep disturbance, increased HR, Diaphoresis, Other: - L UE pain. Negative: Lightheadedness, Nausea, Vomiting - Additional Pertinent History Primary Care Physician: [id number] - Allergy/Home Medications Allergies/Adverse Reactions: Allergies Allergy/AdvReac Type Severity Reaction Status Date / Time baclofen Allergy Severe Palpitation Verified 08/03/17 11:03 s duloxetine [From Cymbalta] AdvReac Pain Verified 08/03/17 11:03 gabapentin AdvReac Altered Verified 08/03/17 11:03 Mental Status methylprednisolone AdvReac Swelling Verified 08/03/17 11:03 [From Medrol] PMH/Surg Hx/FS Hx/Imm Hx Endocrine/Hematology History: Reports: Hx Diabetes Denies: Hx Anemia, Hx Unexplained Bleeding Cardiovascular History: Reports: Hx Angina, Hx Coronary Artery Disease - hx of stents x 2 to circ, Hx Hypercholesterolemia, Hx Hypertension, Hx Myocardial Infarction Denies: Hx Aneurysm, Hx Angioplasty, Hx Auto Implanted Cardiovert Defib, Hx Cardiac Arrest, Hx Cardiomegaly, Hx Congenital Heart Disease, Hx Congestive Heart Failure, Hx Deep Vein Thrombosis, Hx Embolism, Hx Hypotension, Hx Pacemaker/ICD, Hx Peripheral Vascular Disease, Hx Rheumatic Fever, Hx Syncope, Hx Valvular Heart Disease, Other Cardiovascular Problems/Disorders Respiratory History: Denies: Hx Asthma, Hx Chronic Obstructive Pulmonary Disease (COPD) GI History: Reports: Hx Gastroesophageal Reflux Disease Denies: Hx Cirrhosis, Hx Crohn's Disease, Hx Diverticulosis, Hx Gall Bladder Disease, Hx Gastrointestinal Bleed, Hx Hiatal Hernia, Hx Irritable Bowel, Hx Jaundice, Hx Obstructive Bowel, Hx Ileostomy, Hx Pyloric Stenosis, Hx Ulcer, Other GI Disorders History: Denies: Hx Renal Disease Musculoskeletal History: Reports: Hx Arthritis - lower spine, Hx Back Problems - lower back pain, chronic, Hx Orthopedic Injury - compression fxs to lower back , Other Musculoskeletal History - Chronic Pain; Lumbago Denies: Hx Bursitis, Hx Congenital Bone Abnormalities, Hx Fibromyalgia, Hx Gout, Hx Osteoporosis, Hx Scoliosis, Hx Tendonitis Sensory History: Reports: Hx Contacts or Glasses Denies: Hx Hearing Aid Opthamlomology History: Reports: Hx Contacts or Glasses Neurological History: Reports: Other Neuro Impairments/Disorders - lower back disk injury Denies: Hx Dementia, Hx Developmental Delay, Hx Headaches, Hx Migraine, Hx Nerve Disease, Hx Seizures, Hx Spinal Cord Injury, Hx Transient Ischemic Attacks (TIA) Psychiatric History: Denies: Hx Panic Disorder - Surgical History Surgery Procedure, Year, and Place: [place] Card[place] [facility] [place]- Hx Anesthesia Reactions: No - Immunization History Date of Influenza Vaccine: 02/12 Infectious Disease History: No Infectious Disease History: Denies: Hx Hepatitis, Traveled Outside the [place] in Last 30 Days - Family History Known Family History: Positive: Cardiac Disease - [place] - father age 40s - Social History Occupation: Unemployed Lives: With Family Alcohol Use: None Hx Substance Use: No Substance Use Type: Reports: None Substance Use Comment - Amount & Last Used: morphine Hx Tobacco Use: Yes Smoking Status (MU): Former Smoker Type: Cigarettes Amount Used/How Often: 1 can every 2 days Length of Time of Smoking/Using Tobacco: 2 years Have You Smoked in the Last Year: Yes Review of Systems Positive: Skin Diaphoresis, Other - sleep disturbance. Negative: Fever Positive: Chest Pain - fluttering, Other - increased HR Positive: Shortness Of Breath Negative: Vomiting, Nausea Neurological: Negative - lightheadedness All Other Systems Reviewed And Are Negative: Yes Physical Exam - Summary Physical Exam Summary: VITAL SIGNS: Reviewed. GENERAL: Patient is a well-developed and nourished MALE who is lying comfortable in the stretcher. Patient is not in any acute respiratory distress. HEAD AND FACE: No signs of trauma. No ecchymosis, hematomas or skull depressions. No sinus tenderness. EYES: PERRLA, EOMI x 2, No injected conjunctiva, no nystagmus. EARS: Hearing grossly intact. Ear canals and tympanic membranes are within normal limits. MOUTH: Oropharynx within normal limits. NECK: Supple, trachea is midline, no adenopathy, no JVD, no carotid bruit, no c- spine tenderness, neck with full ROM. CHEST: Symmetric, no tenderness at palpation LUNGS: Clear to auscultation bilaterally. No wheezing or crackles. CVS: Regular rate and rhythm, S1 and S2 present, no murmurs or gallops appreciated. ABDOMEN: Soft, non-tender. No signs of distention. No rebound no guarding, and no masses palpated. Bowel sounds are normal. EXTREMITIES: FROM in all major joints, no edema, no cyanosis or clubbing. NEURO: Alert and oriented x 3. No acute neurological deficits. Speech is normal and follows commands. SKIN: Dry and warm Triage Information Reviewed: Yes Vital Signs On Initial Exam: Initial Vitals Temp Pulse Resp BP Pulse Ox 97 F 77 14 156/90 100 08/03/17 11:03 08/03/17 11:03 08/03/17 11:03 08/03/17 11:03 08/03/17 11:03 Vital Signs Reviewed: Yes Diagnostics - Vital Signs Vital Signs Temp Pulse Resp BP Pulse Ox 08/03/17 11:08 85 96 08/03/17 11:06 156/90 08/03/17 11:03 97 F 77 14 156/90 100 - Laboratory Result Diagrams: 08/03/17 11:29 08/03/17 11:29 Lab Statement: Any lab studies that have been ordered have been reviewed, and results considered in the medical decision making process. - Radiology CXR Xray Interpretation: No Acute Changes Radiology Interpretation Completed By: Radiologist - NO EVIDENCE FOR ACUTE DISEASE. ED physician has reviewed this report. - EKG 11:07 Cardiac Rate: NL EKG Rhythm: Sinus Rhythm - 74 BPM EKG Interpretation: no ST elevations, T wave inversion in lead III, nml axis EKG Comparison: No Significant Change - since 05/17/17 Chest Pain Course/Dx - Course Assessment/Plan: The pt is a 56 y/o M presenting to the ED with c/o CP that began last night when the pt was sleeping. Symptoms include SOB, L UE pain, diaphoresis, sleep disturbance and increased HR while waking up. He denies N/V and lightheadedness. The CP is described as intermittent and as a light fluttering. The pt states he has been to a mergers and acquisitions consultant (Dr. Joshi) for his heart problems before. He is scheduled to have a stress test in August however, he states his symptoms have been worsening rapidly and he feels as though he cannot wait until August. The patient was found to have increased BP in the ED. The patient will follow up with PCP for better control of BP. Blood work is without significant abnormalities. CXR reveals no evidence for acute disease. EKG reveals T wave inversions in lead III. In the ED course, the patient was given chewable aspirin. The pt is hemodynamically stable, alert and oriented x3. - Diagnoses Provider Diagnoses: Atypical chest pain Discharge - Sign-Out/Discharge Documenting (check all that apply): Discharge - Discharge Plan Condition: Stable Disposition: HOME Patient Education Materials: Chest Pain (ED) Referrals: Whit Naejra MD [Primary Care Provider] - 3 Days Additional Instructions: FOLLOW UP WITH YOUR PRIMARY CARE PROVIDER WITHIN ONE WEEK FOR HIGH BLOOD PRESSURE NOTED TODAY. RETURN TO THE ED FOR ANY WORSENING OR NEW SYMPTOMS. The documentation as recorded by the Mello desir Stephanie accurately reflects the service I personally performed and the decisions made by , Dmitry Gill MD.
== END 2017-08-03 15:19 | disposition home or self-care (01) ==
LOC: ED 10:57
DX: R07.89 Other chest pain (principal); Z87.891 Personal history of nicotine dependence; E11.9 Type 2 diabetes mellitus without complications; K21.9 Gastro-esophageal reflux disease without esophagitis
CPT/HCPCS: 36415; 71045; 80053; 81003; 82550; 82553; 83735; 83880; 84443; 84484; 85025; 85610; 85730; 93005; 99282; A9270-GY